=== PATIENT | female | born 1955 | race Caucasian/White ===

== ENCOUNTER → 2016-06-10 | Outpatient (REF) ==
[~2016-06-10] MED LIST: BACTRIM DS 8001 TAB PO; BYETTA 5MC300 MCG/SY SC; GLUCOPHAGE XR500 M1 PO; LEVAMIR; LEVAQUIN 750MG750 M1 PO; LEVEMIR SQ; LOPRESSOR 225 MG/TAB PO; NORCO 325 MG-51 TAB PO; NORFLEX 10100 MG/TAB PO; PERCOCET 325 MG1 TA2 PO; PYRIDIUM200 M1 PO; SYNTHROID 0.0.025 MG PO; ULTRAM 50MG TAB50 MG PO; VYTORIN 10 MG-21 TAB PO; ZESTRIL 10MG10 MG PO; ZOFRAN ODT4 MG PO; [UNRECOGNIZED DRUG - OTHER]
== END ==
LOC: WSOH 14:34
DX: Z02.89 Encounter for other administrative examinations (principal)

== ENCOUNTER → 2016-07-23 | Outpatient (REF) | LOC: WSOH 14:30 | DX: Z01.84 Encounter for antibody response examination (principal) ==

== ENCOUNTER → 2016-07-26 | Outpatient (REF) | LOC: WSOH 14:22 | DX: Z23 Encounter for immunization (principal) ==

== ENCOUNTER → 2016-09-04 | Outpatient (REF) | LOC: WSOH 14:31 | DX: Z23 Encounter for immunization (principal) ==

== ENCOUNTER 2016-09-16 05:24 | Emergency (ER) | payer OTHER ==
[~2016-09-16] VITALS: Ht 165.1 cm; Wt 81.8 kg
[~2016-09-16 05:24] MED LIST changes: -NORFLEX 10100 MG/TAB PO; -PERCOCET 325 MG1 TA2 PO; -SYNTHROID 0.0.025 MG PO; -ULTRAM 50MG TAB50 MG PO; -ZOFRAN ODT4 MG PO
[2016-09-16 05:26] VITALS: BP 197/93; TEMP 97.6
[2016-09-16] MEDS ORDERED: SYNTHROID 0.0.025 MG PO (05:30)
[2016-09-16] MEDS ORDERED: ULTRAM 50MG TAB50 MG PO (05:44)
[2016-09-16] MEDS ORDERED: PERCOCET 325 MG1 TA2 PO (05:44)
[2016-09-16 06:07] VITALS: PULSE 75
[2016-09-17] MEDS ORDERED: NORFLEX 10100 MG/TAB PO (18:42)
[2016-09-17] MEDS ORDERED: ZOFRAN ODT4 MG PO (18:42)
== END 2016-09-16 06:08 | disposition home or self-care (01) ==
LOC: COL.ER 05:24
DX: M54.32 Sciatica, left side (principal); E11.9 Type 2 diabetes mellitus without complications; I10 Essential (primary) hypertension; F17.210 Nicotine dependence, cigarettes, uncomplicated; Z79.4 Long term (current) use of insulin; Z85.850 Personal history of malignant neoplasm of thyroid
CPT/HCPCS: J1170

== ENCOUNTER 2016-09-17 17:16 | Emergency (ER) | payer OTHER ==
[~2016-09-17] VITALS: Ht 167.6 cm; Wt 81.8 kg
[~2016-09-17 17:16] MED LIST changes: +PERCOCET 325 MG1 TA2 PO; +SYNTHROID 0.0.025 MG PO; +ULTRAM 50MG TAB50 MG PO
[2016-09-17 17:31] VITALS: BP 171/55; TEMP 98.4
[2016-09-17] MEDS ORDERED: ZOFRAN ODT4 MG PO (18:42)
[2016-09-17] MEDS ORDERED: NORFLEX 10100 MG/TAB PO (18:42)
[2016-09-17 19:00] VITALS: PULSE 71
== END 2016-09-17 19:00 | disposition home or self-care (01) ==
LOC: COL.ER 17:16
DX: M54.16 Radiculopathy, lumbar region (principal); I10 Essential (primary) hypertension; E11.9 Type 2 diabetes mellitus without complications; Z79.4 Long term (current) use of insulin
CPT/HCPCS: J1885; J2270; J2360; J2405

== ENCOUNTER → 2016-09-19 | Outpatient (REF) ==
[~2016-09-19] MED LIST changes: +NORFLEX 10100 MG/TAB PO; +ZOFRAN ODT4 MG PO
== END ==
LOC: ZLAB.WCH 18:06
DX: Z01.89 Encounter for other specified special examinations (principal)

== ENCOUNTER → 2016-09-20 | Outpatient (CLI) | payer OTHER | LOC: COL.RAD 10:48 | DX: M51.26 Other intervertebral disc displacement, lumbar region (principal) ==

== ENCOUNTER → 2016-12-19 | Outpatient (REF) | LOC: ZLAB.WCH 18:21 | DX: Z01.89 Encounter for other specified special examinations (principal) ==

== ENCOUNTER → 2017-01-29 | Outpatient (REF) | LOC: WSOH 14:24 | DX: Z02.89 Encounter for other administrative examinations (principal) ==

== ENCOUNTER 2017-02-02 07:01 | Emergency (ER) | payer OTHER ==
[~2017-02-02] VITALS: Ht 167.6 cm; Wt 79.5 kg
[2017-02-02 07:05] VITALS: TEMP 98.3
[2017-02-02 08:32] VITALS: BP 147/58; PULSE 65
== END 2017-02-02 08:52 | disposition home or self-care (01) ==
LOC: COL.ER 07:01
DX: M54.31 Sciatica, right side (principal); E11.9 Type 2 diabetes mellitus without complications; E03.9 Hypothyroidism, unspecified; Z79.4 Long term (current) use of insulin; Z79.84 Long term (current) use of oral hypoglycemic drugs
CPT/HCPCS: J1885

== ENCOUNTER → 2017-02-24 | Outpatient (REF) | LOC: ZLAB.WCH 18:00 | DX: Z01.89 Encounter for other specified special examinations (principal) ==

== ENCOUNTER → 2017-06-27 | Outpatient (REF) ==
[2017-06-27 19:47] LABS: THYROID STIMULATING HORMONE 1.04 uIU/mL (0.465-4.680)
== END ==
LOC: ZLAB.WCH 18:43
PROVIDERS: Internal Medicine
DX: Z01.89 Encounter for other specified special examinations (principal)

== ENCOUNTER → 2018-04-28 | Outpatient (REF) ==
[2018-04-28 10:22] LABS: THYROID STIMULATING HORMONE 9.83 uIU/mL (0.465-4.680)
== END ==
LOC: ZLAB.WCH 09:35
PROVIDERS: Internal Medicine
DX: Z01.89 Encounter for other specified special examinations (principal)

== ENCOUNTER 2018-09-24 19:57 | Emergency (ER) | payer OTHER ==
[~2018-09-24] VITALS: Ht 162.6 cm; Wt 84.1 kg
[2018-09-24 20:02] VITALS: TEMP 97.4
[2018-09-24] MEDS ORDERED: LEVEMIR FLEX100 U/ML SQ (20:23)
[2018-09-24] MEDS ORDERED: ERGOCALCIFER50000 IU PO (20:24)
[2018-09-24] MEDS ORDERED: SYNTHROID 0.10.15 MG PO (20:24)
[2018-09-24] MEDS ORDERED: PRINIVIL20 MG PO (20:24)
[2018-09-24] MEDS ORDERED: BYDUREON PEN2 MG SQ (20:25)
[2018-09-24 20:42] LABS: BASO # 0.1 (0.0-0.2); BASO % 0.6 % (0.0-2.0); EOS # 0.3 (0.0-0.7); EOS % 3.4 % (0-4.0); GRAN # 2.9 (1.4-6.5); GRAN % 35.5 % (42.2-75.2); HEMOGLOBIN 12.2 g/dl (12.5-16.0); LYMPH # 4.1 (1.2-3.4); LYMPH % 50.7 % (20.0-51.0); MEAN CELL VOLUME 89 fl (80.0-100.0); MEAN CORPUSCULAR HEMOGLOBIN 30 pg (27.0-31.0); MEAN CORPUSCULAR HGB CONC 34 g/dl (33.0-37.0); MONO # 0.8 (0.1-0.6); MONO % 9.6 % (1.7-9.3); PLATELET COUNT 220 K/mm3 (130-400); RED BLOOD COUNT 4.07 M/mm3 (4.10-5.30); REDCELL DISTRIBUTION WIDTH-CV 13.2 % (11.5-14.5)
[2018-09-24 20:43] LABS: HEMATOCRIT 36.4 % (37.0-47.0)
[2018-09-24 21:00] LABS: ALANINE AMINOTRANSFERASE 16 U/L (9-52); ALBUMIN 4.1 gm/dL (3.5-5.0); ALKALINE PHOSPHATASE 114 U/L (50-136); ANION GAP 9 mmol/L (7-16); AST,SGOT 27 U/L (15-37); BILIRUBIN,TOTAL 0.5 mg/dL (0.0-1.0); BLOOD UREA NITROGEN 25 mg/dL (7-17); C-REACTIVE PROTEIN < 0.5 mg/dL (0.0-0.9); CALCIUM 9.4 mg/dL (8.4-10.2); CARBON DIOXIDE 21 mmol/L (22-30); CHLORIDE 111 mmol/L (98-107); CREATININE, serum 0.86 (0.52-1.25); GLUCOSE 157 mg/dL (74-106); POTASSIUM 4.1 mmol/L (3.4-5.0); SODIUM 142 mmol/L (137-145); TOTAL PROTEIN 7.6 gm/dL (6.4-8.2)
[2018-09-24 21:06] LABS: ERYTHROCYTE SEDIMENTATION RATE 18 mm/hr (0-30)
[2018-09-24] MEDS ORDERED: DOXYCYCLINE HY100 MG PO (21:30)
[2018-09-24 21:42] VITALS: BP 161/74; PULSE 85
== END 2018-09-24 21:44 | disposition home or self-care (01) ==
LOC: COL.ER 19:57
PROVIDERS: Emergency Medicine
DX: E11.621 Type 2 diabetes mellitus with foot ulcer (principal); L97.519 Non-pressure chronic ulcer of other part of right foot with unspecified severity; I10 Essential (primary) hypertension; F17.210 Nicotine dependence, cigarettes, uncomplicated; Z79.4 Long term (current) use of insulin

== ENCOUNTER 2020-05-28 10:26 | Emergency (ER) | payer OTHER ==
[~2020-05-28] VITALS: Ht 165.1 cm; Wt 95.0 kg
[~2020-05-28 10:26] MED LIST changes: +BYDUREON PEN2 MG SQ; +DOXYCYCLINE HY100 MG PO; +ERGOCALCIFER50000 IU PO; +LEVEMIR FLEX100 U/ML SQ; +PRINIVIL20 MG PO; +SYNTHROID 0.10.15 MG PO
[2020-05-28 10:42] VITALS: TEMP 97.9
[2020-05-28 11:39] LABS: ALANINE AMINOTRANSFERASE 21 U/L (4-34); ALBUMIN 3.9 gm/dL (3.5-5.0); ALKALINE PHOSPHATASE 88 U/L (50-136); ANION GAP 9 mmol/L (7-16); AST,SGOT 29 U/L (15-37); BILIRUBIN,TOTAL 0.5 mg/dL (0.0-1.0); BLOOD UREA NITROGEN 24 mg/dL (7-17); CALCIUM 8.7 mg/dL (8.4-10.2); CARBON DIOXIDE 20 mmol/L (22-30); CHLORIDE 108 mmol/L (98-107); CREATININE, serum 1.04 (0.52-1.25); GLUCOSE 181 mg/dL (74-106); POTASSIUM 4.9 mmol/L (3.4-5.0); SODIUM 137 mmol/L (137-145); TOTAL PROTEIN 7.4 gm/dL (6.4-8.2)
[2020-05-28 11:54] LABS: TROPONIN-I < 0.012 ng/mL (0.000-0.035)
[2020-05-28 12:26] LABS: STREP SCREEN NEGATIVE
[2020-05-28] MEDS ORDERED: TUSS PO (12:42)
[2020-05-28 12:50] VITALS: BP 149/61; PULSE 86
== END 2020-05-28 12:53 | disposition home or self-care (01) ==
LOC: COL.ER 10:26
PROVIDERS: Nurse Practitioner Primary Care
DX: J06.9 Acute upper respiratory infection, unspecified (principal); I10 Essential (primary) hypertension; E11.9 Type 2 diabetes mellitus without complications; F17.210 Nicotine dependence, cigarettes, uncomplicated; Z79.4 Long term (current) use of insulin; Z20.822 Contact with and (suspected) exposure to COVID-19

== ENCOUNTER → 2020-09-15 | Outpatient (REF) ==
[~2020-09-15] MED LIST changes: +TUSS PO
== END ==
LOC: COL.LAB 07:59
DX: Z20.822 Contact with and (suspected) exposure to COVID-19 (principal)

== ENCOUNTER → 2020-12-11 | Outpatient (REF) | LOC: COL.LAB 10:21 | DX: Z20.822 Contact with and (suspected) exposure to COVID-19 (principal) ==

== ENCOUNTER → 2021-03-13 | Outpatient (CLI) | payer BC ==
[2021-03-13 16:21] LABS: COLLECTION METHOD CLEAN CATCH
[2021-03-13 16:40] LABS: MUCOUS Present /lpf; PH 5 (5-8); SQUAMOUS EPITHELIAL 0-2 /hpf; URINE APPEARANCE Clear; URINE BACTERIA None Seen /hpf; URINE BILIRUBIN Negative (NEGATIVE); URINE BLOOD Negative (NEGATIVE); URINE COLOR Yellow; URINE GLUCOSE Negative (NEGATIVE); URINE KETONE Negative (NEGATIVE); URINE LEUKOCYTE ESTERASE Negative (NEGATIVE); URINE NITRATE Negative (NEGATIVE); URINE PROTEIN(semi-quant) 3+ (NEGATIVE); URINE RBC 0-2 /hpf; URINE UROBILINOGEN Negative (NEGATIVE); URINE WBC 0-2 /hpf
== END ==
LOC: COL.LAB 15:37
PROVIDERS: Internal Medicine
DX: R10.9 Unspecified abdominal pain (principal)

== ENCOUNTER 2021-04-26 09:45 | Outpatient (RCR) | payer BC | END 2021-05-18 | disposition home or self-care (01) | LOC: WSPT | DX: S29.019A Strain of muscle and tendon of unspecified wall of thorax, initial encounter (principal) ==